=== PATIENT | female | born 1965 | race Two or more races ===

== ENCOUNTER 2019-09-30 11:53 | Day surgery (SDC) | payer OTHER ==
[2019-09-30] VITALS (11 sets, daily range): BP systolic 139–157; BP diastolic 76–91
[~2019-09-30] VITALS: Ht 162.6 cm; Wt 70.3 kg
--- NOTE | 2019-09-30 07:04 | Pre-Procedure Note/Attestation ---
Pre-Procedure Note/Attestation Complete Prior to Procedure Planned Procedure: right Procedure Narrative: rt knee scope, medial meniscectomy and chondroplasty Indications for Procedure Pre-Operative Diagnosis: rt knee medial meniscus tear Attestation I attest that I discussed the nature of the procedure; its benefits; risks and complications; and alternatives (and the risks and benefits of such alternatives ), prior to the procedure, with the patient (or the patient's legal circulation sales representative). I attest that, if there was a reasonable possibility of needing a blood transfusion, the patient (or the patient's legal circulation sales representative) was given the [facility] standardized written summary, pursuant to the Jaiden Ivonne Blood Safety Act ([place] Health and Safety Code # 1645, as amended). I attest that I re-evaluated the patient just prior to the surgery and that there has been no change in the patient's H&P, except as documented below: none Raul Butler MD Sep 30, 2019 07:04
[~2019-09-30 11:53] MED LIST: ceFAZolin 1gm IVPB IVPB ONE; celeBREX 200mg Cap **SURGERY PATIENTS ONLY ORAL ONE; oxyCONTIN 20mg tab ORAL ONE
[2019-09-30] MEDS ORDERED: Ropivacaine 5mg/ml Vial 20ml INJ ONE (12:19)
[2019-09-30] MEDS ORDERED: LR 1000ml 1,000 ML IVLG SCH (12:21)
--- NOTE | 2019-09-30 12:21 | Anethesia Preoperative Eval ---
Anesthesia Pre-op PMH/ROS General Date of Evaluation: Sep 30, 2019 Anesthesiologist: Wero ASA Score: ASA 2 Mallampati Score Class I : Soft palate, uvula, fauces, pillars visible Class II: Soft palate, uvula, fauces visible Class III: Soft palate, base of uvula visible Class IV: Only hard plate visible Mallampati Classification: Class II Surgeon: Carrie Diagnosis: Right knee derangement Surgical Procedure: Rig knee arthroscopy Anesthesia History: none Family History: no anesthesia problems Allergies: Coded Allergies: No Known Allergies (Unverified , 09/29/19) Medications: see eMAR Patient NPO?: Yes NPO Date: Sep 30, 2019 Past Medical History Cardiovascular: Reports: HTN; Denies: CAD, ME, valve dz, arrhythmia, other Pulmonary: Denies: asthma, COPD, MARIZA, other Gastrointestinal/Genitourinary: Denies: GERD, CRI, ESRD, other Neurologic/Psychiatric: Reports: depression/anxiety; Denies: dementia, CVA, TIA, other Endocrine: Denies: DM, hypothyroidism, steroids, other HEENT: Denies: cataract (L), cataract (R), glaucoma, GAMBELL (L), GAMBELL (R), other Hematology/Immune: Denies: anemia, DVT, bleeding disorder, other Musculoskeletal/Integumentary: Denies: OA, RA, DJD, DDD, edema, other PSxH Narrative: right acl, lumbar sx Anesthesia Pre-op Phys. Exam Physician Exam see chart Constitutional: NAD Cardiovascular: RRR Respiratory: CTA Airway Exam Mallampati Score: Class III MO: limited ROM: full Teeth: intact Anesthesia Pre-op A/P Labs see chart Urine Test neg Studies Pre-op Studies: EKG - sr Risk Assessment & Plan Assessment: ASA II Plan: GA Status Change Before Surgery: No Pre-Antibiotics Drug: Ancef Given Within 1 Hr of Incision: Yes Kirsten Ross MD Sep 30, 2019 12:21
[2019-09-30] MEDS ORDERED: celeBREX 200mg Cap **SURGERY PATIENTS ONLY ORAL ONE (12:25)
[2019-09-30] MEDS ORDERED: oxyCONTIN 20mg tab ORAL ONE (12:25)
[2019-09-30] MEDS ORDERED: fentaNYL 100 mcg/2 mL IV PRN (12:30)
[2019-09-30] MEDS ORDERED: LORazepam Inj 2mg/ml 1ml IV PRN (12:30)
[2019-09-30] MEDS ORDERED: Metoclopramide 10mg/2ml Inj IVP PRN (12:30)
[2019-09-30] MEDS ORDERED: Midazolam 2mg/2ml Inj IVP PRN (12:30)
[2019-09-30] MEDS ORDERED: DiphenhydrAMINE 50mg/ml Inj IVP PRN (12:30)
[2019-09-30] MEDS ORDERED: Hydromorphone 0.5mg/0.5ml inj IVP PRN (12:30)
[2019-09-30] MEDS ORDERED: Ketorolac 30mg Inj IV PRN (12:30)
[2019-09-30] MEDS ORDERED: NS Irrig 4000ml IRRIG ONE (12:45)
[2019-09-30] MEDS ORDERED: LR 1000ml ONE (12:45)
[2019-09-30] MEDS ORDERED: Lidocaine 1% MPF 10mg/ml 5ml ONE (12:46)
[2019-09-30] MEDS ORDERED: Propofol 200mg/20ml IV ONE (12:46)
[2019-09-30] MEDS ORDERED: Midazolam 2mg/2ml Inj ONE (12:47)
[2019-09-30] MEDS ORDERED: fentaNYL 100 mcg/2 mL IV ONE (12:47)
--- NOTE | 2019-09-30 13:33 | Brief Operative Note ---
Immediate Post Operative Note Operative Note Chief Complaint: rt knee pain Pre-op Diagnosis: rt knee medial meniscus tear Procedure: rt knee scope, medial meniscectomy and chondroplasty Post-op Diagnosis: same as pre-op Findings: consistent w/pre-op dx studies Surgeon: md adenike Resource Management Specialist: maldonado schroeder Anesthesiologist: md janet Anesthesia: general Specimen: none Complications: none Condition: stable Fluids: ns Estimated Blood Loss: minimal Drains: none Implant(s) used?: No Donna Schroeder Sep 30, 2019 13:33
--- NOTE | 2019-09-30 13:42 | Immediate Post-Op Evaluation ---
Immediate Post-Op Evalulation Immediate Post-Op Evalulation Procedure: Right knee arthrosocpy Date of Evaluation: Sep 30, 2019 Time of Evaluation: 13:43 IV Fluids: 500 Blood Products: 0 Estimated Blood Loss: min Urinary Output: 0 Blood Pressure Systolic: 149 Blood Pressure Diastolic: 76 Pulse Rate: 69 Respiratory Rate: 16 O2 Sat by Pulse Oximetry: 96 Temperature (Fahrenheit): 97 Pain Score (1-10): 0 Nausea: No Vomiting: No Complications 0 Patient Status: awake, reacts, patent, none Hydration Status: adequate Drug: Ancef 1g Given Within 1 Hr of Incision: Yes Kirsten Ross MD Sep 30, 2019 13:42
--- NOTE | 2019-09-30 13:42 | 48 Hour Post Anesthesia Eval ---
Post Anesthesia Evaluation Procedure: Right knee arthrosocpy Date of Evaluation: Sep 30, 2019 Airway: patent Nausea: No Vomiting: No Pain Intensity: 0 Hydration Status: adequate Cardiopulmonary Status: at baseline Mental Status/LOC: patient returned to baseline Post-Anesthesia Complications: 0 Follow-up care needed: ready to discharge Kirsten Ross MD Sep 30, 2019 13:42
--- NOTE | 2019-09-30 16:15 | Operative Note - Dictated ---
DATE OF OPERATION: 09/30/2019 PREOPERATIVE DIAGNOSIS: Right knee medial meniscus tearing, possible meniscal root tear. POSTOPERATIVE DIAGNOSES: 1. Right knee status post ACL reconstruction with intact ACL graft. 2. 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 3. Right knee complex tear of the posterior horn and body of the medial meniscus with intact meniscus root involving 40% of the medial meniscus. 4. Right knee free edge tear of the posterior horn and body of the lateral meniscus involving 10% of the lateral meniscus. PROCEDURE: 1. Right knee arthroscopy and extensive intra-articular shaving. 2. Right knee patellofemoral as well as medial femoral as well as lateral femoral chondroplasty. 3. Right knee partial lateral meniscectomy involving 10% of the posterior horn and body of the lateral meniscus. 4. Right knee partial medial meniscectomy involving 40% of the posterior horn and body of the medial meniscus. SURGEON: Raul Butler M.D. CONTRACT ASSOCIATE MANAGER: Donna Medrano PA-C. Double Backer was present during the actual operative portion of the case and was important and essential part of the operation. During the operation, the guest services assistant held and operated the arthroscopic camera for visualization, assisted by manipulating the leg to help with visualization, and helped with essential parts of the repair process as necessary such as operating surgical instruments under surgeon supervision, suture management, and wound closures. ANESTHESIOLOGIST: Kirsten Conteh M.D. ANESTHESIA: General LMA anesthesia. TOURNIQUET TIME: 25 minutes. EBL: Minimal. COMPLICATIONS: None. SURGICAL INDICATION: Patient is a 53-year-old female who sustained the above injury to her knee. The patient was treated non-operative initially, but this did not alleviate the patients symptoms. Therefore, after discussing all non-surgical and surgical options, and discussing all foreseeable risk and benefits of surgery, the patient opted for surgical treatment as described above. PATIENT POSITIONING: Patient was brought to the operating room table and placed supine. All pressure points were well padded. General Anesthesia was induced and a well padded tourniquet was placed on the thigh. The lateral post was placed and positioned to allow for opening of the medial compartment of the knee without placing pressure over the fibular head. Patients entire leg was prepped and draped in the usual sterile fashion. Time out was performed and preop abx was given and after exsanguinating the lower extremity, the tourniquet was inflated to 275 mm of mercury. EXAMINATION OF THE KNEE UNDER ANESTHESIA: Before prepping and draping the knee and while the patient was relaxed under general anesthesia, the knee was examined for ROM, and anterior and posterior, medial and lateral, posterolateral, and posteromedial instability. Pivot shift testing was performed. There was no evidence of loss of motion or instability and the pivot shift testing was negative. PORTAL PLACEMENT: The lateral portal was placed with the knee flexed to 90 degrees at the level of inferior border of the patella in line with the lateral border of the patella. A cm skin incision was made with an eleven blade, and using a blunt obturator, the capsule was gently penetrated. Sterile saline solution was then infused inside the knee with the aid of a pump set at 35 mm mercury pressure. Under direct visualization, placement of the medial portal was preliminary judged using a spinal needle, and it was subsequently established using the same technique as the lateral portal. Care was given not to injure the cutaneous branches of the medial Saphenous nerve or the subcutaneous veins. DIAGNOSTIC ARTHROSCOPY: The suprapatellar patellar pouch was visualized. There was no evidence of scar tissue or loose fragments. The medial and lateral patellar facets and trochlear groove articular cartilage was visualized. There was extensive chondral damage over the central trochlear groove with grade 4 chondromalacia with some fibrocartilage degeneration. This area measured 3 x 4 centimeters. There was evidence of lateral patellar chondral damage consistent with grade 2 and grade 3 chondromalacia. The medial plica shelf and the corresponding medial femoral condyle articular cartilage were visualized. There was no significantly thickening of the medial plica shelf and there were no kissing? lesion over the medial femoral condyle. The lateral gutter and the posterolateral corner of the knee were visualized. There were no loose bodies, and the popliteus tendon and other structures of the posterolateral corner of the knee were intact intra-articularly. At this point, the knee was placed in the figure of four position and the lateral compartment was entered. The lateral femoral condyle, lateral tibial plateau, and the anterior, body, and the posterior horn of the lateral meniscus were visualized and probed. There was some chondral damage of the lateral femoral condyle and some grade 2 chondral change of the lateral tibial plateau. There was a free edge tear of the posterior horn and the junction with the body of the lateral meniscus. This involved 10 to 15% of the lateral meniscus. The knee was then placed at 90 degree and the ACL and PCL were visualized and probed. ACL reconstruction appeared to be intact and this was probed and there was excellent tension. The PCL was completely intact on visualization and probing and it had excellent tension. The medial compartment was then entered and the medial femoral condyle, medial tibial plateau, and the anterior, body, and the posterior horn of the medial meniscus were visualized and probed. There was extensive chondral damage over the medial femoral condyle diffusely measuring 2 x 3 cm. There was a complex tear of the posterior horn and body of the medial meniscus with unstable chondral flap. The meniscus root was examined and this was intact. However, this tear involved 40% of the medial meniscus. The medial gutter was visualized. There was no evidence of defect or loose fragments. The scope was then brought back to the patella femoral compartment. OPERATIVE ARTHROSCOPY: At this point, all loose debris and fragments were removed with the use of suction motorized shaver. Specific attention was given to assure all visible loose fragments were irrigated out of the knee joint with pump inflow and cannula outflow system. For patella femoral chondroplasty: The frayed articular cartilage of the undersurface of the patella and the trochlear groove were debrided using a motorized shaver. Suction was used to pull in the loose fragments and flaps of the cartilage and to minimize damage to the intact and well attached portion of the cartilage. This allowed for a smooth surface for the articular cartilage gliding. For lateral meniscectomy: At this point, attention was given to the lateral meniscus. Using combination of baskets and harlan, the torn portion of the lateral meniscus was removed. Attention was given to remove all displaced and unstable portion of the lateral meniscus while maintaining as much of the functional portion of the meniscus as possible. Approximately, 15% of the posterior horn and body of the meniscus was removed in this fashion. The transition between the meniscectomy portion and intact portion of the meniscus was smoothed out with combination of small baskets and harlan. Excellent transition zone was obtained in this fashion. For lateral compartment chondroplasty: Care was given to the area of cartilage damage in the lateral compartment. The fayed and loose fragments of articular cartilage were debrided using a motorized shaver. Suction was used to pull in the loose fragments and flaps of the cartilage and to minimize damage to the intact and well attached portion of the cartilage. This allowed for smooth surfaces for the articular cartilage. For medial meniscectomy: At this point, attention was given to the medial meniscus. Using combination of baskets and harlan, the torn portion of the medial meniscus was removed. Attention was given to remove all displaced and unstable portion of the medial meniscus while maintaining as much of the functional portion of the meniscus as possible. Approximately, 40% of the posterior horn and body of the medial meniscus was removed in this fashion. The transition between the meniscectomy portion and intact portion of the meniscus was smoothed out with combination of small baskets and harlan. Excellent transition zone was obtained in this fashion. For medial compartment chondroplasty: Care was given to the area of cartilage damage in the medial compartment. The frayed and loose fragments of articular cartilage were debrided using a motorized shaver. Suction was used to pull in the loose fragments and flaps of the cartilage and to minimize damage to the intact and well attached portion of the cartilage. This allowed for smooth surfaces for the articular cartilage. CONDITION AT DISCHARGE FROM OPERATING ROOM: The knee was irrigated with copious amount of normal saline at the end of the procedure. The scope was removed and the water was drained. The skin edges were re-approximated and sterile dressing was applied. All lap count and instrument counts were correct. Patient tolerated the procedure well without complications and was taken to the recovery room in stable conditions. Raul Butler M.D. DR: HARRIS JOB#: [id number] CC:
[2019-09-30] MEDS ORDERED: Tylenol #3 tab (300mg/30mg) ORAL PRN (21:01)
[2019-09-30] MEDS ORDERED: D5 1/2NS 1,000 ML IV SCH (21:01)
[2019-09-30] MEDS ORDERED: HYDROmorphone 1mg/ml Carpuject SUBQ PRN (21:01)
[2019-09-30] MEDS ORDERED: HYDROcodone/Acetamin 5/325 tab ORAL PRN (21:01)
== END 2019-09-30 15:15 | disposition home or self-care (01) ==
LOC: EDSEX 11:53 → SUR 11:53 → EDSEX 14:00 → SUR 15:15
DX: S83.281A Other tear of lateral meniscus, current injury, right knee, initial encounter (principal); M17.31 Unilateral post-traumatic osteoarthritis, right knee; I10 Essential (primary) hypertension; F32.9 Major depressive disorder, single episode, unspecified; F41.9 Anxiety disorder, unspecified; X58.XXXA Exposure to other specified factors, initial encounter; Y92.9 Unspecified place or not applicable
CPT/HCPCS: 29880; 81025; J0690; J1885; J2250; J2704; J2795; J3010; J7120; 94003; 94150